=== PATIENT | male | born 1990 | race Caucasian/White ===

== ENCOUNTER 2016-06-12 07:38 | Day surgery (SDC) | payer OTHER ==
[~2016-06-12] VITALS: Ht 180.3 cm; Wt 70.3 kg
[~2016-06-12 07:38] MED LIST: TYLENOL EXTRA500 MG PO
[2016-06-12 08:09] VITALS: BP 112/65
[2016-06-12 13:07] VITALS: BP 128/67
[2016-06-12 13:48] VITALS: BP 140/65
== END 2016-06-12 13:50 | disposition home or self-care (01) ==
LOC: SDC 07:38
PROC: 0LQ80ZZ Repair Left Hand Tendon, Open Approach (ICD-10-PCS; principal; 2016-06-12)
DX: S66.022A Laceration of long flexor muscle, fascia and tendon of left thumb at wrist and hand level, initial encounter (principal); W25.XXXA Contact with sharp glass, initial encounter; Y93.G3 Activity, cooking and baking; Y92.120 Kitchen in nursing home as the place of occurrence of the external cause; Y99.0 Civilian activity done for income or pay
CPT/HCPCS: J0131; J0690; J1100; J1170; J1885; J2250; J2405; J2710; J2765; J3010; S0020